=== PATIENT | male | born 1935 | race Caucasian/White ===

== ENCOUNTER → 2021-06-16 | Outpatient (CLI) | payer MEDICARE ==
[~2021-06-16] MED LIST: KEFLEX500 MG PO; VICODIN 500 MG-1 TAB PO
[2021-06-16 09:14] LABS: BASO % 0.5 % (0.0-1.0); EOS # 0.3 10*3/uL (0.0-0.4); EOS % 5.3 % (1.0-4.0); LYMPH # 1.5 10*3/uL (1.3-4.4); LYMPH % 26.7 % (27.0-41.0); MEAN CELL VOLUME 91.1 fl (80.0-94.0); MEAN CORPUSCULAR HGB 29.6 pg (27.0-31.0); MEAN CORPUSCULAR HGB CONC 32.4 g/dl (33.0-37.0); MEAN PLATELET VOLUME 10.7 fl (9.6-12.3); MONO # 0.4 10*3/uL (0.1-1.0); MONO % 7.8 % (3.0-9.0); NEUT # 3.3 10*3/uL (2.3-7.9); NEUT % 59.3 % (47.0-73.0); PLATELET COUNT AUTOMATED 166 10*3/uL (130-400); WHITE BLOOD COUNT 5.5 10*3/uL (4.8-10.8)
[2021-06-16 09:33] LABS: CHLORIDE 110 mmol/L (98-107); POTASSIUM 4.3 mmol/L (3.5-5.1); SODIUM 142 mmol/L (136-145)
[2021-06-16 09:56] LABS: ALBUMIN 3.1 gm/dl (3.1-4.5); ALKALINE PHOSPHATASE 74 U/L (45-117); BUN 26 mg/dl (7-24); CREATININE 0.95 mg/dL (0.70-1.30); SGOT/AST 15 IU/L (3-35); SGPT/ALT 20 U/L (12-78); T3 UPTAKE 37 % (31-39); THYROXINE (T4) TOTAL 9.3 ug/dl (4.5-12.1); TOTAL PROTEIN 6.8 gm/dL (6.4-8.2)
[2021-06-16 11:06] LABS: BILIRUBIN Negative (Negative); BLOOD Negative (Negative); CLARITY Clear (Clear); COLOR Yellow (Yellow); GLUCOSE Negative (Negative); KETONE Negative (Negative); LEUKO ESTERASE Negative (Negative); NITRITE Negative (Negative); UROBILINOGEN 0.2 E.U./dl (0.0-1.0)
[2021-06-16 12:24] LABS: CALCIUM OXALATE CRYSTALS Trace; MUCOUS 1+
[2021-06-24 13:06] LABS: CALCIUM OXALATE 3.45 ratio (0.00-6.00); CITRIC ACID (CITRATE) 338 mg/24 hr (320-1240); CREATININE, URINE 58.6 mg/dL (Not Estab.); CREATININE, URINE 937.6 mg/24 hr (1000.0-2000.0); MAGNESIUM, URINE 3.4 mg/dL (Not Estab.); MONOSODIUM URATE 1.18 ratio (0.00-4.00); OSMOLALITY, URINE 503 (300-900); SODIUM, URINE 102 mmol/L (Not Estab.); SODIUM, URINE 163 (23-207); STRUVITE 0.01 ratio (0.00-1.00); URIC ACID 2.87 ratio (0.00-1.20); pH 24 HR URINE 5.2 (4.5-8.0)
== END | disposition home or self-care (01) ==
LOC: LAB 08:41
PROVIDERS: ATTEND Urology
DX: Z12.5 Encounter for screening for malignant neoplasm of prostate (principal); D40.0 Neoplasm of uncertain behavior of prostate; E83.50 Unspecified disorder of calcium metabolism; N20.0 Calculus of kidney; R31.9 Hematuria, unspecified

== ENCOUNTER → 2021-06-19 | Outpatient (CLI) | payer MEDICARE | END | disposition home or self-care (01) | LOC: US 00:36 | PROVIDERS: ATTEND Urology | DX: N20.9 Urinary calculus, unspecified (principal); N40.0 Benign prostatic hyperplasia without lower urinary tract symptoms ==

== ENCOUNTER 2022-09-14 14:05 | Emergency (ER) | payer MEDICARE ==
[~2022-09-14] VITALS: Wt 79.8 kg
== END 2022-09-14 16:08 | disposition home or self-care (01) ==
LOC: ED 14:05
DX: S40.011A Contusion of right shoulder, initial encounter (principal); Z98.890 Other specified postprocedural states; W01.0XXA Fall on same level from slipping, tripping and stumbling without subsequent striking against object, initial encounter; Y93.89 Activity, other specified; Y92.410 Unspecified street and highway as the place of occurrence of the external cause; Y99.8 Other external cause status

== ENCOUNTER → 2023-03-11 | Outpatient (CLI) | payer MEDICARE ==
[2023-03-11 10:10] LABS: BASO % 0.7 % (0.0-1.0); EOS # 0.4 10*3/uL (0.0-0.4); HEMATOCRIT 43.5 % (42.0-52.0); LYMPH # 1.5 10*3/uL (1.3-4.4); LYMPH % 26.2 % (27.0-41.0); MEAN CELL VOLUME 92.4 fl (80.0-94.0); MEAN CORPUSCULAR HGB 31.2 pg (27.0-31.0); MEAN CORPUSCULAR HGB CONC 33.8 g/dl (33.0-37.0); MEAN PLATELET VOLUME 10.8 fl (9.6-12.3); MONO # 0.6 10*3/uL (0.1-1.0); MONO % 9.9 % (3.0-9.0); NEUT # 3.3 10*3/uL (2.3-7.9); NEUT % 56.9 % (47.0-73.0); PLATELET COUNT AUTOMATED 165 10*3/uL (130-400); RED BLOOD COUNT 4.71 10*6/uL (4.50-5.90); RED CELL DISTRI WIDTH 13.1 % (0-14.5); WHITE BLOOD COUNT 5.9 10*3/uL (4.8-10.8)
[2023-03-11 10:26] LABS: ALKALINE PHOSPHATASE 89 U/L (46-116); BUN 19 mg/dl (9-23); CHLORIDE 105 mmol/L (98-107); CHOLESTEROL 108 mg/dL (<200); LDL CHOLESTEROL 52 mg/dL (9-159); POTASSIUM 4.3 mmol/L (3.4-5.1); SGPT/ALT 21 U/L (10-49); TOTAL PROTEIN 6.6 gm/dL (6.0-8.0); TRIGLYCERIDES 56 mg/dl (<150)
== END | disposition home or self-care (01) ==
LOC: LAB 09:29
PROVIDERS: ATTEND Internal Medicine Cardiovascular Disease
DX: I42.9 Cardiomyopathy, unspecified (principal); I10 Essential (primary) hypertension; E78.5 Hyperlipidemia, unspecified

== ENCOUNTER → 2023-06-22 | Outpatient (CLI) | payer MEDICARE | LOC: RAD 11:22 | PROVIDERS: ATTEND Internal Medicine | DX: M19.012 Primary osteoarthritis, left shoulder (principal); M79.622 Pain in left upper arm ==

== ENCOUNTER → 2023-09-22 | Outpatient (CLI) | payer MEDICARE ==
[2023-09-22 11:01] LABS: BUN 29 mg/dl (9-23); CHLORIDE 109 mmol/L (98-107)
[2023-09-22 11:02] LABS: POTASSIUM 3.8 mmol/L (3.4-5.1)
== END | disposition home or self-care (01) ==
LOC: LAB 09:42
PROVIDERS: ATTEND Nurse Practitioner Family
DX: E78.5 Hyperlipidemia, unspecified (principal)

== ENCOUNTER 2024-04-03 07:44 | Emergency (ER) | payer MEDICARE ==
[~2024-04-03] VITALS: Ht 177.8 cm; Wt 79.8 kg
[2024-04-03] MEDS ORDERED: CLOPIDOGREL75 MG PO (08:00)
[2024-04-03] MEDS ORDERED: XALATAN 0.005%2.5 ML INTRAOC (08:00)
[2024-04-03] MEDS ORDERED: METOPROLOL SUCC25 M2 PO (08:00)
[2024-04-03] MEDS ORDERED: VITAMIN D31250 MC1 PO (08:01)
[2024-04-03] MEDS ORDERED: LATANOPROST2.5 ML OP (08:01)
[2024-04-03] MEDS ORDERED: ATORVASTATIN CA40 M1 PO (08:01)
[2024-04-03] MEDS ORDERED: LISINOPRIL30 MG PO (08:01)
[2024-04-03] MEDS ORDERED: ASPIRIN ADULT L81 M1 PO (08:02)
[2024-04-03] MEDS ORDERED: TIMOLOL MALEATE10 M1 OPH (08:02)
[2024-04-03] MEDS ORDERED: Acetaminophen/Oxycodone 5 MG/325 MG TABLET PO ONE (08:20)
[2024-04-03 08:37] LABS: BASO % 0.4 % (0.0-1.0); EOS # 0.2 10*3/uL (0.0-0.4); EOS % 1.9 % (1.0-4.0); HEMATOCRIT 41.3 % (42.0-52.0); LYMPH # 1.5 10*3/uL (1.3-4.4); LYMPH % 18.1 % (27.0-41.0); MEAN CELL VOLUME 93.4 fl (80.0-94.0); MEAN CORPUSCULAR HGB CONC 33.2 g/dl (33.0-37.0); MEAN PLATELET VOLUME 10.1 fl (9.6-12.3); MONO # 0.7 10*3/uL (0.1-1.0); MONO % 7.6 % (3.0-9.0); NEUT # 6.1 10*3/uL (2.3-7.9); NEUT % 71.3 % (47.0-73.0); PLATELET COUNT AUTOMATED 143 10*3/uL (130-400); RED BLOOD COUNT 4.42 10*6/uL (4.50-5.90); RED CELL DISTRI WIDTH 13.3 % (0-14.5); WHITE BLOOD COUNT 8.5 10*3/uL (4.8-10.8)
[2024-04-03 08:59] LABS: BUN 17 mg/dl (9-23); CHLORIDE 106 mmol/L (98-107); POTASSIUM 4.6 mmol/L (3.4-5.1)
[2024-04-03] MEDS ORDERED: MELOXICAM15 MG PO (09:07)
== END 2024-04-03 09:23 | disposition home or self-care (01) ==
LOC: ED 07:44
PROVIDERS: Internal Medicine
DX: S43.401A Unspecified sprain of right shoulder joint, initial encounter (principal); I10 Essential (primary) hypertension; I25.2 Old myocardial infarction; E78.5 Hyperlipidemia, unspecified; Z87.442 Personal history of urinary calculi; Z98.890 Other specified postprocedural states; X50.0XXA Overexertion from strenuous movement or load, initial encounter; Y93.89 Activity, other specified; Y92.89 Other specified places as the place of occurrence of the external cause; Y99.8 Other external cause status